=== PATIENT | male | born 1965 | race Caucasian/White ===

== ENCOUNTER 2024-05-26 00:35 | Inpatient (IN) | payer MEDICARE, MEDICAID ==
[2024-05-26] VITALS (19 sets, daily range): BP systolic 125–161; BP diastolic 71–100; PULSE 65–90; RESP 6–18; TEMP 97–98.2; O2SAT 89–100
[~2024-05-26] VITALS: Ht 175.3 cm; Wt 72.0 kg
[2024-05-26 00:59] LABS: BASOPHILS # (AUTO) 0.1 X10'3 (0-0.2); BASOPHILS % (AUTO) 0.6 % (0-1); EOSINOPHILS # (AUTO) 0.2 X10'3 (0-0.9); EOSINOPHILS % (AUTO) 1.7 % (0-6); HEMATOCRIT 44.6 % (42.0-52.0); HEMOGLOBIN 14.6 g/dl (14.0-17.9); LYMPHOCYTES % (AUTO) 10.5 % (21-51); MEAN CORPUSCULAR HEMOGLOBIN 29.8 PG (27.0-31.0); MEAN CORPUSCULAR HGB CONC 32.7 g/dL (33.0-36.5); MEAN CORPUSCULAR VOLUME 91.2 FL (78-98); MEAN PLATELET VOLUME 8.7 FL (7.4-10.4); MONOCYTES # (AUTO) 0.6 X10'3 (0-0.9); MONOCYTES % (AUTO) 5.7 % (2-12); NEUTROPHILS % (AUTO) 81.5 % (42-75); PLATELET COUNT 315 X10'3 (140-440); RED BLOOD COUNT 4.89 X10'6 (4.70-6.10); RED CELL DISTRIBUTION WIDTH 14.3 % (11.5-14.5); WHITE BLOOD COUNT 9.8 X10'3 (4.5-11.0)
[2024-05-26 01:11] LABS: ANION GAP 9 (8-16); BILIRUBIN,TOTAL 0.4 MG/DL (0.1-1.0); BLOOD UREA NITROGEN 5 MG/DL (7-18); BUN/CREATININE RATIO 5.3 (10.0-20.0); CALCIUM 8.6 MG/DL (8.5-10.1); CHLORIDE 99 MMOL/L (99-107); CREATININE 0.95 MG/DL (0.60-1.10); GLUCOSE 147 MG/DL (70-104); POTASSIUM 3.9 MMOL/L (3.5-5.1); SODIUM 135 MMOL/L (135-145); TOTAL CARBON DIOXIDE 26.7 MMOL/L (24-32); TOTAL PROTEIN 7.4 G/DL (6.4-8.2); eCRCL 83 ML/MIN; eGFR 81 ML/MIN
[2024-05-26 01:12] LABS: ALANINE AMINOTRANSFERASE 35 U/L (12-78); ALBUMIN 3.6 G/DL (3.4-5.0); ALBUMIN/GLOBULIN RATIO 0.9 (1.1-1.5); ALKALINE PHOSPHATASE 130 IU/L (46-116); ASPARTATE AMINO TRANSFERASE 32 U/L (10-37); LIPASE 24 U/L (16-77)
[2024-05-26] MEDS: normal saline 1000ml 1,000 ML IV ONE (01:38)
[2024-05-26] MEDS: piperacillin/tazo 3.375gm/50ml 50 ML IV SCH (01:40)
[2024-05-26 02:34] LABS: BILIRUBIN,URINE NEGATIVE (Neg); CLARITY,URINE CLEAR (Clear); COLOR,URINE YELLOW (Yellow); GLUCOSE, URINE NEGATIVE (Neg); KETONES,URINE NEGATIVE (Neg); LEUKOCYTE ESTERASE ,URINE NEGATIVE (Neg); NITRITES, URINE NEGATIVE (Neg); OCCULT BLOOD,URINE NEGATIVE (Neg); PROTEIN,URINE NEGATIVE (Neg); UROBILINOGEN,URINE 0.2 E.U/dL (0.2-1.0)
[2024-05-26 02:35] LABS: UA COLLECTION TYPE NON-SPECIFIED
[2024-05-26] MEDS ORDERED: QUET200T31 (03:23)
[2024-05-26] MEDS ORDERED: PALI234D IM (03:23)
[2024-05-26] MEDS ORDERED: AMAN100C20 (03:23)
[2024-05-26] MEDS ORDERED: TRAZ-251 (03:23)
[2024-05-26] MEDS ORDERED: DIAZ5TAB5 (03:23)
[2024-05-26] MEDS ORDERED: TOPI-95 (03:23)
[2024-05-26] MEDS: normal saline 1000ml 1,000 ML IV SCH (04:25)
[2024-05-26] MEDS ORDERED: acetaminophen 325mg tablet PO PRN (04:25)
[2024-05-26] MEDS ORDERED: ondansetron/PF 4mg/2ml inj IV PRN ×2 (04:25→18:30)
[2024-05-26] MEDS ORDERED: potassium Cl 40MEQ/1/2NS 520ml 520 ML IV PRN (04:25)
[2024-05-26] MEDS ORDERED: mag hydrox/Alum hydrox/simeth 30ml oral suspension PO PRN (04:25)
[2024-05-26] MEDS ORDERED: potassium Cl 20 mEq SR tablet PO PRN (04:25)
[2024-05-26] MEDS ORDERED: magnesium Cl slow-release 64mg tablet PO PRN (04:25)
[2024-05-26] MEDS ORDERED: magnesium hydroxide 30ml (MOM) UD suspension PO PRN (04:25)
[2024-05-26] MEDS ORDERED: magnesium sulf-water 4G/100mL 100 ML IV PRN (04:25)
[2024-05-26] MEDS ORDERED: magnesium sulf-water 2g/50mL 50 ML IV PRN (04:25)
[2024-05-26] MEDS ORDERED: HYDROcodone/acetaminophen 10/325mg tab PO PRN (04:55)
[2024-05-26] MEDS ORDERED: HYDROcodone/acetaminophen 5mg/325mg tablet PO PRN (04:55)
[2024-05-26 05:21] LABS: HEMOGLOBIN A1C 5.2 % (4.5-6.2)
[2024-05-26] MEDS: folic acid 1mg tablet PO SCH (05:25)
[2024-05-26] MEDS ORDERED: LORazepam 1 MG tablet PO PRN (05:25)
[2024-05-26] MEDS: thiamine 100mg tablet PO SCH (05:25)
[2024-05-26] MEDS ORDERED: haloperidol lactate 5mg/ml inj IM PRN (05:25)
[2024-05-26 05:58] LABS: URINE AMPHETAMINE SCREEN NEGATIVE (Neg); URINE BARBITUATE SCREEN NEGATIVE (Neg); URINE BENZODIAZEPINES SCREEN POSITIVE (Neg); URINE CANNABINOID SCREEN NEGATIVE (Neg); URINE COCAINE SCREEN NEGATIVE (Neg); URINE METHADONE SCREEN NEGATIVE (Neg); URINE OPIATE SCREEN NEGATIVE (Neg); URINE PHENCYCLIDINE SCREEN NEGATIVE (Neg)
[2024-05-26] MEDS: pantoprazole 40mg Tablet.DR PO SCH (07:17)
[2024-05-26] MEDS: docusate sod 100mg capsule PO SCH (07:18)
[2024-05-26] MEDS: K and/or MAG REPLACEMENT MC SCH (07:19)
[2024-05-26 08:08] LABS: MAGNESIUM 1.9 MG/DL (1.5-2.4)
[2024-05-26 09:11] LABS: ETHANOL < 10 MG/DL (<10)
[2024-05-26 16:45] LABS: PRE OP INR 1.1 INR; PRE OP PROTIME 11.3 SECONDS (9.0-12.0)
[2024-05-26] MEDS ORDERED: BUPIVAcaine 2.5mg/ml inj 50ml vial (contains preservative) ONE (17:23)
[2024-05-26] MEDS ORDERED: rocuronium 10mg/ml inj IV ONE (18:16)
[2024-05-26] MEDS ORDERED: ondansetron/PF 4mg/2ml inj ONE (18:16)
[2024-05-26] MEDS ORDERED: LIDOcaine 2% (20mg/ml) 5ml vial ONE (18:16)
[2024-05-26] MEDS ORDERED: propofol inj 20 ML IV ONE (18:16)
[2024-05-26] MEDS ORDERED: sevoflurane 250ml liquid IH ONE (18:26)
[2024-05-26] MEDS ORDERED: hydrALAZINE 20mg/ml inj. IV PRN (18:30)
[2024-05-26] MEDS: ringers solution, lacted 1,000 ML IV SCH (18:30)
[2024-05-26] MEDS ORDERED: HYDROmorphone/PF 0.2 MG/ML SYRINGE IV PRN (18:30)
[2024-05-26] MEDS ORDERED: labetalol 20mg/4ml (5mg/ml) syringe IV PRN (18:30)
[2024-05-26] MEDS ORDERED: fentaNYL/PF 50MCG/1 ML 2ML syringe IV PRN (18:30)
[2024-05-26] MEDS ORDERED: fentaNYL/PF 50MCG/1 ML 2ML syringe ONE (18:35)
[2024-05-26] MEDS ORDERED: midazolam 1 mg/ML 2ml injection ONE (18:36)
[2024-05-26] MEDS ORDERED: sugammadex 200mg/2ml injection IV ONE (18:51)
[2024-05-26] MEDS: BUPIVAcaine/PF 2.5 mg/ml (0.25%) 30ml vial IJ ONE (19:09)
[2024-05-26] MEDS ORDERED: naloxone 0.4 mg/ml inj IV PRN (19:45)
[2024-05-26] MEDS: HYDROmorphone/PF 0.2 MG/ML SYRINGE IV PRN (19:58)
[2024-05-26] MEDS: fentaNYL/PF 50MCG/1 ML 2ML syringe IV PRN (20:18)
[2024-05-26] MEDS: acetaminophen 1,000mg/100ml IV 100 ML IV SCH (20:19)
[2024-05-26] MEDS: HYDROcodone/acetaminophen 10/325mg tab PO PRN (23:03)
[2024-05-27] VITALS (7 sets, daily range): BP systolic 114–176; BP diastolic 64–91; PULSE 74–91; RESP 15–20; TEMP 97.4–98.8; O2SAT 95–98
[2024-05-27 05:14] LABS: BASOPHILS % (AUTO) 0.3 % (0-1); EOSINOPHILS % (AUTO) 0.1 % (0-6); HEMOGLOBIN 13.3 g/dl (14.0-17.9); LYMPHOCYTES # (AUTO) 0.5 X10'3 (1.1-4.8); LYMPHOCYTES % (AUTO) 5.9 % (21-51); MEAN CORPUSCULAR HEMOGLOBIN 30.9 PG (27.0-31.0); MEAN CORPUSCULAR VOLUME 90.8 FL (78-98); MEAN PLATELET VOLUME 8.9 FL (7.4-10.4); MONOCYTES # (AUTO) 0.1 X10'3 (0-0.9); MONOCYTES % (AUTO) 1.5 % (2-12); NEUTROPHILS # (AUTO) 7.7 X10'3 (1.8-7.7); NEUTROPHILS % (AUTO) 92.2 % (42-75); PLATELET COUNT 262 X10'3 (140-440); WHITE BLOOD COUNT 8.4 X10'3 (4.5-11.0)
[2024-05-27 05:31] LABS: ALANINE AMINOTRANSFERASE 44 U/L (12-78); ALBUMIN 2.8 G/DL (3.4-5.0); ALBUMIN/GLOBULIN RATIO 0.8 (1.1-1.5); ALKALINE PHOSPHATASE 105 IU/L (46-116); ANION GAP 10 (8-16); ASPARTATE AMINO TRANSFERASE 50 U/L (10-37); BILIRUBIN,TOTAL 0.6 MG/DL (0.1-1.0); BLOOD UREA NITROGEN 6 MG/DL (7-18); BUN/CREATININE RATIO 5.1 (10.0-20.0); CHLORIDE 103 MMOL/L (99-107); CREATININE 1.18 MG/DL (0.60-1.10); GLUCOSE 153 MG/DL (70-104); MAGNESIUM 1.6 MG/DL (1.5-2.4); POTASSIUM 4.1 MMOL/L (3.5-5.1); SODIUM 137 MMOL/L (135-145); TOTAL PROTEIN 6.1 G/DL (6.4-8.2); eCRCL 67 ML/MIN; eGFR 63 ML/MIN
[2024-05-27] MEDS: dextrose 5%-1/2 normal saline 1,000 ML IV SCH (11:03)
[2024-05-27] MEDS ORDERED: TRAZ-251 PO (16:08)
[2024-05-27] MEDS ORDERED: AMA100C PO (16:08)
[2024-05-27] MEDS ORDERED: QUET200T PO (16:08)
[2024-05-27] MEDS ORDERED: TOPI-95 PO (16:08)
[2024-05-27] MEDS ORDERED: DIAZ-351 PO (16:08)
[2024-05-27] MEDS ORDERED: diazepam 5mg tablet PO PRN (17:50)
[2024-05-27] MEDS: quetiapine 100mg tablet PO SCH (20:17)
[2024-05-27] MEDS: amantadine 100 MG capsule PO SCH (20:17)
[2024-05-27] MEDS: traZODone 50mg tablet PO PRN (20:26)
[2024-05-28] VITALS: BP 105/53; PULSE 88; RESP 16; TEMP 98.1; O2SAT 94
[2024-05-28 04:58] LABS: BASOPHILS % (AUTO) 0.5 % (0-1); EOSINOPHILS # (AUTO) 0.2 X10'3 (0-0.9); EOSINOPHILS % (AUTO) 1.9 % (0-6); HEMATOCRIT 34.6 % (42.0-52.0); HEMOGLOBIN 11.8 g/dl (14.0-17.9); LYMPHOCYTES # (AUTO) 2.1 X10'3 (1.1-4.8); LYMPHOCYTES % (AUTO) 24.2 % (21-51); MEAN CORPUSCULAR HEMOGLOBIN 31.1 PG (27.0-31.0); MEAN CORPUSCULAR HGB CONC 34.2 g/dL (33.0-36.5); MEAN PLATELET VOLUME 9.1 FL (7.4-10.4); MONOCYTES # (AUTO) 0.8 X10'3 (0-0.9); MONOCYTES % (AUTO) 8.8 % (2-12); NEUTROPHILS # (AUTO) 5.7 X10'3 (1.8-7.7); NEUTROPHILS % (AUTO) 64.6 % (42-75); PLATELET COUNT 249 X10'3 (140-440); RED CELL DISTRIBUTION WIDTH 14.2 % (11.5-14.5); WHITE BLOOD COUNT 8.8 X10'3 (4.5-11.0)
[2024-05-28 05:14] LABS: ALANINE AMINOTRANSFERASE 34 U/L (12-78); ALBUMIN 2.6 G/DL (3.4-5.0); ALBUMIN/GLOBULIN RATIO 0.9 (1.1-1.5); ALKALINE PHOSPHATASE 81 IU/L (46-116); ANION GAP 6 (8-16); ASPARTATE AMINO TRANSFERASE 32 U/L (10-37); BILIRUBIN,TOTAL 0.5 MG/DL (0.1-1.0); BLOOD UREA NITROGEN 5 MG/DL (7-18); BUN/CREATININE RATIO 4.9 (10.0-20.0); CALCIUM 7.8 MG/DL (8.5-10.1); CHLORIDE 106 MMOL/L (99-107); CREATININE 1.03 MG/DL (0.60-1.10); GLUCOSE 97 MG/DL (70-104); MAGNESIUM 1.7 MG/DL (1.5-2.4); POTASSIUM 3.3 MMOL/L (3.5-5.1); SODIUM 139 MMOL/L (135-145); TOTAL CARBON DIOXIDE 27.5 MMOL/L (24-32); TOTAL PROTEIN 5.5 G/DL (6.4-8.2); eCRCL 76 ML/MIN; eGFR 74 ML/MIN
[2024-05-28 06:55] VITALS: BP 120/69; PULSE 72; RESP 16; TEMP 98; O2SAT 95
[2024-05-28] MEDS: potassium Cl 20 mEq SR tablet PO PRN (07:29)
[2024-05-28] MEDS: topiramate 25mg tablet PO SCH (07:30)
[2024-05-28 10:00] VITALS: BP 141/87; PULSE 90; RESP 13; TEMP 98.3; O2SAT 96
[2024-05-28 18:00] VITALS: BP 122/74; PULSE 70; RESP 18; TEMP 97.7; O2SAT 94
[2024-05-28 20:00] VITALS: RESP 18; O2SAT 94
[2024-05-29 05:54] LABS: BASOPHILS # (AUTO) 0.1 X10'3 (0-0.2); BASOPHILS % (AUTO) 0.9 % (0-1); EOSINOPHILS # (AUTO) 0.4 X10'3 (0-0.9); EOSINOPHILS % (AUTO) 4.8 % (0-6); HEMATOCRIT 38.7 % (42.0-52.0); HEMOGLOBIN 13.2 g/dl (14.0-17.9); LYMPHOCYTES # (AUTO) 1.4 X10'3 (1.1-4.8); LYMPHOCYTES % (AUTO) 17.9 % (21-51); MEAN CORPUSCULAR HEMOGLOBIN 31.1 PG (27.0-31.0); MEAN CORPUSCULAR HGB CONC 34.1 g/dL (33.0-36.5); MEAN CORPUSCULAR VOLUME 91.1 FL (78-98); MONOCYTES # (AUTO) 0.7 X10'3 (0-0.9); MONOCYTES % (AUTO) 9.3 % (2-12); NEUTROPHILS # (AUTO) 5.3 X10'3 (1.8-7.7); NEUTROPHILS % (AUTO) 67.1 % (42-75); PLATELET COUNT 294 X10'3 (140-440); RED BLOOD COUNT 4.24 X10'6 (4.70-6.10); RED CELL DISTRIBUTION WIDTH 14.2 % (11.5-14.5); WHITE BLOOD COUNT 7.9 X10'3 (4.5-11.0)
[2024-05-29 06:00] VITALS: BP 128/71; PULSE 84; RESP 16; TEMP 98.8; O2SAT 93
[2024-05-29 06:23] LABS: ALANINE AMINOTRANSFERASE 35 U/L (12-78); ALBUMIN 2.9 G/DL (3.4-5.0); ALBUMIN/GLOBULIN RATIO 0.9 (1.1-1.5); ALKALINE PHOSPHATASE 89 IU/L (46-116); ANION GAP 7 (8-16); ASPARTATE AMINO TRANSFERASE 20 U/L (10-37); BILIRUBIN,TOTAL 0.6 MG/DL (0.1-1.0); BLOOD UREA NITROGEN 6 MG/DL (7-18); BUN/CREATININE RATIO 6.1 (10.0-20.0); CALCIUM 8.3 MG/DL (8.5-10.1); CHLORIDE 105 MMOL/L (99-107); CREATININE 0.98 MG/DL (0.60-1.10); GLUCOSE 90 MG/DL (70-104); POTASSIUM 3.5 MMOL/L (3.5-5.1); SODIUM 138 MMOL/L (135-145); TOTAL CARBON DIOXIDE 25.6 MMOL/L (24-32); eCRCL 80 ML/MIN; eGFR 78 ML/MIN
[2024-05-29 08:00] VITALS: RESP 16; O2SAT 93
[2024-05-29] MEDS ORDERED: WATER IV SCH (08:45)
[2024-05-29] MEDS ORDERED: SODIUM BICARBONATE IV SCH (08:45)
[2024-05-29] MEDS ORDERED: DEXTROSE 5% IV SCH (08:45)
[2024-05-29] MEDS ORDERED: HYDR-3972 PO (10:04)
[2024-05-29 15:05] VITALS: RESP 16
== END 2024-05-29 15:43 | disposition home or self-care (01) | DRG 417 ==
LOC: ER 00:36 → ED HOLD 04:25 → SUR 3N 07:03
PROVIDERS: ADMIT Internal Medicine Critical Care Medicine; ATTEND Internal Medicine
PROC: 8E0W4CZ Robotic Assisted Procedure of Trunk Region, Percutaneous Endoscopic Approach (ICD-10-PCS; 2024-05-26)
PROC: 0FT44ZZ Resection of Gallbladder, Percutaneous Endoscopic Approach (ICD-10-PCS; principal; 2024-05-26 18:20)
DX: K80.12 Calculus of gallbladder with acute and chronic cholecystitis without obstruction (principal); N17.0 Acute kidney failure with tubular necrosis; I10 Essential (primary) hypertension; R73.9 Hyperglycemia, unspecified; F32.A Depression, unspecified; G89.29 Other chronic pain; F10.10 Alcohol abuse, uncomplicated; K76.0 Fatty (change of) liver, not elsewhere classified; Z79.899 Other long term (current) drug therapy
CPT/HCPCS: 36415; 71045; 74181; 76700; 78226; 80053; 80305; 80320; 81003; 82948; 83036; 83605; 83690; 83735; 85025; 85610; 85730; 87040; 87081; 88304; 93005; 97116; 97161; 97530; 99285; A4215; A4615; A4618; A6258; A6449; A7000; A9537; G0378; J0131; J1100; J1171; J2003; J2250; J2405; J2543; J2704; J3010; J3490; J7030; J7120